=== PATIENT | male | born 1960 | race African-American/Black ===

== ENCOUNTER 2025-06-18 10:55 | Emergency (ER) | payer BC, MEDICAID ==
[~2025-06-18] VITALS: Ht 177.8 cm; Wt 80.0 kg
[2025-06-18 11:07] VITALS: TEMP 36.9; O2SAT 97
[2025-06-18] MEDS ORDERED: NAPR-681 MT (11:18)
[2025-06-18] MEDS ORDERED: LIDO-53 TP (11:18)
[2025-06-18] MEDS: ACETAMINOPHEN 500MG TABLET PO ONE (11:43)
[2025-06-18] MEDS: LIDOCAINE 5% PATCH TOP SCH (11:43)
[2025-06-18] MEDS: KETOROLAC 30MG/ML VIAL IM ONE (11:43)
[2025-06-18 12:01] VITALS: BP 129/85; PULSE 81; RESP 18; O2SAT 100
== END 2025-06-18 12:16 | disposition home or self-care (01) ==
LOC: ER 11:15
DX: G89.29 Other chronic pain (principal); M54.50 Low back pain, unspecified; E11.9 Type 2 diabetes mellitus without complications; Z79.1 Long term (current) use of non-steroidal anti-inflammatories (NSAID)
CPT/HCPCS: 99283; 96372; J1885; A6449